=== PATIENT | male | born 1965 | race Caucasian/White ===

== ENCOUNTER 2017-10-24 23:06 | Inpatient (IN) | payer BC, OTHER ==
[~2017-10-24] VITALS: Ht 180.3 cm; Wt 107.1 kg
[2017-10-24] MEDS ORDERED: ADENOSINE 6 MG/2 ML ONE ×2 (23:20)
[2017-10-24] MEDS ORDERED: SODIUM CHLORIDE 0.9% 1,000ML IVBOLUS ONE (23:30)
[2017-10-24] MEDS ORDERED: ADENOSINE 6 MG/2 ML IVPush ONE ×2 (23:30)
[2017-10-24] MEDS ORDERED: CAND32TA2 PO (23:45)
[2017-10-24 23:46] LABS: BASOPHILS # (AUTO) 0.04 x10^3/uL (0-0.1); BASOPHILS % (AUTO) 0 % (0-1); EOSINOPHILS # (AUTO) 0.15 x10^3/uL (0-0.4); EOSINOPHILS % (AUTO) 1 % (1-7); LYMPHOCYTES # (AUTO) 4.03 x10^3/uL (1-3.4); LYMPHOCYTES % (AUTO) 37 % (22-44); MD NO; MEAN CORPUSCULAR HEMOGLOBIN 29.9 pg (27.5-34.5); MEAN CORPUSCULAR VOLUME 90.4 fL (81-97); MEAN PLATELET VOLUME 9.3 fL (7.4-10.4); MONOCYTES # (AUTO) 0.94 x10^3/uL (0.2-0.8); MONOCYTES % (AUTO) 9 % (2-9); NEUTROPHILS # (AUTO) 5.75 x10^3/uL (1.8-6.8); NEUTROPHILS % (AUTO) 53 % (42-75); PLATELET COUNT 308 x10^3/uL (130-400); RED BLOOD COUNT 5.99 x10^6/uL (4.38-5.82); RED CELL DISTRIBUTION WIDTH 13.2 % (9.4-14.8)
[2017-10-24 23:58] LABS: ALBUMIN 3.9 g/dL (3.4-5.0); ANION GAP 9 mmol/L (5-15); CALCIUM 9.3 mg/dL (8.5-10.1); CHLORIDE 103 mmol/L (98-107); CREATININE 1.51 mg/dL (0.7-1.3)
[2017-10-25 00:04] LABS: TROPONIN I 0.162 ng/mL (0.000-0.045)
[2017-10-25] MEDS ORDERED: SODIUM CHLORIDE 0.9% 1,000ML IVBOLUS ONE (00:30)
[2017-10-25 02:06] LABS: TROPONIN I 0.261 ng/mL (0.000-0.045)
[2017-10-25] MEDS ORDERED: SODIUM CHLORIDE 0.9% 1,000 ML IV ONE (03:01)
[2017-10-25] MEDS ORDERED: ONDANSETRON 2MG/ML, 2ML IVPush PRN ×2 (03:30→08:00)
[2017-10-25] MEDS: SODIUM CHLORIDE 0.9% 1,000 ML IV SCH ×2 (07:00→16:55)
[2017-10-25] MEDS ORDERED: ACETAMINOPHEN 325 MG TABLET PO PRN (08:00)
[2017-10-25] MEDS ORDERED: ONDANSETRON ODT 4 MG PO PRN (08:00)
[2017-10-25] MEDS ORDERED: DOCUSATE 100 MG CAPSULE PO PRN (08:00)
[2017-10-25] MEDS ORDERED: BISACODYL 10 MG SUPP PR PRN (08:00)
[2017-10-25] MEDS ORDERED: HEPARIN 5,000 UNITS/ML, 1ML ONE (08:10)
[2017-10-25] MEDS ORDERED: ASPIRIN 325 MG TABLET EC ONE (08:10)
[2017-10-25 08:23] LABS: TROPONIN I 0.223 ng/mL (0.000-0.045)
[2017-10-25 08:49] LABS: HEMOGLOBIN A1C 5.9 % (4.2-6.3)
[2017-10-25 09:00] VITALS: BP 148/98
[2017-10-25] MEDS: DILTIAZEM 30 MG TABLET PO SCH ×3 (12:27→22:31)
[2017-10-25] MEDS: ASPIRIN 325 MG TABLET EC PO SCH (12:27)
[2017-10-25] MEDS: HEPARIN 5,000 UNITS/ML, 1ML SQ SCH ×2 (12:28→22:31)
[2017-10-25 12:43] VITALS: BP 150/93
[2017-10-25 16:15] LABS: RAPID INFLUENZA A Negative (Negative); RAPID INFLUENZA B Negative (Negative)
[2017-10-25 19:42] VITALS: BP 131/73
[2017-10-25] MEDS: SODIUM CHLORIDE NASAL SPRAY 45ML BOTTLE NAS SCH (21:00)
[2017-10-25 23:39] LABS: MICROSCOPIC AUTO
[2017-10-25 23:42] LABS: CULTURE INDICATED? NO
[2017-10-26 00:30] VITALS: BP 128/84
[2017-10-26] MEDS: SODIUM CHLORIDE 0.9% 1,000 ML IV SCH (02:25)
[2017-10-26 05:18] LABS: ALBUMIN 3.4 g/dL (3.4-5.0); ANION GAP 5 mmol/L (5-15); CALCIUM 8.1 mg/dL (8.5-10.1); CHLORIDE 111 mmol/L (98-107)
[2017-10-26 05:24] LABS: ALANINE AMINOTRANSFERASE 54 U/L (12-78); ALKALINE PHOSPHATASE 63 U/L (45-117); BILIRUBIN,TOTAL 0.6 mg/dL (0.2-1.0); CHOL/HDL RATIO 4.1; CHOLESTEROL, TOTAL 140 mg/dL (140-239); CREATININE 1.04 mg/dL (0.7-1.3); HDL CHOL % 24 % (26-37); HDL CHOLESTEROL (DIRECT) 34 mg/dL (40-60); LDL CHOLESTEROL,CALCULATED 89 mg/dL (54-169); LDL/HDL RATIO 2.6 (0.5-3.0); TOTAL PROTEIN 6.4 g/dL (6.4-8.2); TRIGLYCERIDES 86 mg/dL (50-200); VLDL CHOLESTEROL 17 mg/dL (0-25)
[2017-10-26 05:27] LABS: BASOPHILS # (AUTO) 0.08 x10^3/uL (0-0.1); BASOPHILS % (AUTO) 1 % (0-1); EOSINOPHILS # (AUTO) 0.21 x10^3/uL (0-0.4); EOSINOPHILS % (AUTO) 3 % (1-7); LYMPHOCYTES # (AUTO) 2.45 x10^3/uL (1-3.4); LYMPHOCYTES % (AUTO) 34 % (22-44); MD NO; MEAN CORPUSCULAR HEMOGLOBIN 30.4 pg (27.5-34.5); MEAN CORPUSCULAR HGB CONC 33.6 g/dL (33.2-36.2); MEAN CORPUSCULAR VOLUME 90.5 fL (81-97); MEAN PLATELET VOLUME 9.3 fL (7.4-10.4); MONOCYTES # (AUTO) 0.73 x10^3/uL (0.2-0.8); MONOCYTES % (AUTO) 10 % (2-9); NEUTROPHILS # (AUTO) 3.67 x10^3/uL (1.8-6.8); NEUTROPHILS % (AUTO) 51 % (42-75); PLATELET COUNT 256 x10^3/uL (130-400); RED BLOOD COUNT 5.31 x10^6/uL (4.38-5.82)
[2017-10-26] MEDS: ASPIRIN 325 MG TABLET EC PO SCH (06:00)
[2017-10-26] MEDS: HEPARIN 5,000 UNITS/ML, 1ML SQ SCH ×2 (06:28→10:45)
[2017-10-26] MEDS: DILTIAZEM 30 MG TABLET PO SCH ×2 (06:28→11:23)
[2017-10-26 06:43] VITALS: BP 138/96
[2017-10-26] MEDS: SODIUM CHLORIDE NASAL SPRAY 45ML BOTTLE NAS SCH (08:15)
[2017-10-26] MEDS ORDERED: DILT30TA27 PO (10:36)
[2017-10-26 13:12] VITALS: BP 135/88
== END 2017-10-26 14:00 | disposition home or self-care (01) | DRG 308 ==
LOC: ED 10-25 01:13 → EDIP 10-25 03:01 → 5SO 10-25 08:54 → DCLOUNGE 10-26 13:45
PROVIDERS: ADMIT Surgery; ATTEND Surgery
DX: I47.1 Supraventricular tachycardia (principal); N17.0 Acute kidney failure with tubular necrosis; I24.8 Other forms of acute ischemic heart disease; D75.1 Secondary polycythemia; E86.0 Dehydration; I11.9 Hypertensive heart disease without heart failure; J06.9 Acute upper respiratory infection, unspecified
CPT/HCPCS: 36415; 71045; 80048; 80053; 80061; 81001; 82040; 83036; 83735; 84443; 84484; 85025; 87400; 92960; 93005; 93306; 96360; 96361; J0153; J1644; J7030

== ENCOUNTER 2018-08-29 16:35 | Emergency (ER) | payer BC ==
[~2018-08-29] VITALS: Ht 180.3 cm; Wt 103.9 kg
[~2018-08-29 16:35] MED LIST: CAND32TA2 PO; DILT30TA27 PO
[2018-08-29 17:34] LABS: MICROSCOPIC AUTO
[2018-08-29 17:36] LABS: CULTURE INDICATED? NO
[2018-08-29 17:51] LABS: BASOPHILS # (AUTO) 0.02 x10^3/uL (0-0.1); BASOPHILS % (AUTO) 0 % (0-1); EOSINOPHILS # (AUTO) 0.04 x10^3/uL (0-0.4); EOSINOPHILS % (AUTO) 0 % (1-7); LYMPHOCYTES # (AUTO) 1.64 x10^3/uL (1-3.4); LYMPHOCYTES % (AUTO) 14 % (22-44); MD NO; MEAN CORPUSCULAR HEMOGLOBIN 30.5 pg (27.5-34.5); MEAN CORPUSCULAR HGB CONC 33.3 g/dL (33.2-36.2); MEAN CORPUSCULAR VOLUME 91.5 fL (81-97); MEAN PLATELET VOLUME 9.2 fL (7.4-10.4); MONOCYTES # (AUTO) 0.67 x10^3/uL (0.2-0.8); MONOCYTES % (AUTO) 6 % (2-9); NEUTROPHILS # (AUTO) 9.08 x10^3/uL (1.8-6.8); NEUTROPHILS % (AUTO) 79 % (42-75); PLATELET COUNT 216 x10^3/uL (130-400); RED BLOOD COUNT 5.57 x10^6/uL (4.38-5.82); RED CELL DISTRIBUTION WIDTH 13.6 % (9.4-14.8)
[2018-08-29 17:59] LABS: ALBUMIN 4.1 g/dL (3.4-5.0); ANION GAP 10 mmol/L (5-15); CALCIUM 8.9 mg/dL (8.5-10.1); CHLORIDE 110 mmol/L (98-107); CREATININE 1.22 mg/dL (0.7-1.3)
[2018-08-29 19:30] VITALS: BP 114/72
== END 2018-08-29 19:35 | disposition home or self-care (01) ==
LOC: ED 17:41
DX: N40.1 Benign prostatic hyperplasia with lower urinary tract symptoms (principal); R33.8 Other retention of urine; I10 Essential (primary) hypertension; I25.2 Old myocardial infarction
CPT/HCPCS: 36415; 80048; 81001; 82040; 85025; 99284